=== PATIENT | female | born 1980 | race American Indian/Alaskan Native ===

== ENCOUNTER 2018-08-06 19:30 | Emergency (ER) | payer BC ==
--- NOTE | 2018-08-06 21:10 | XRay Report ---
PROCEDURE: XR ANKLE 3+V RT TECHNIQUE: 3 views of the right ankle HISTORY: fall, pain COMPARISONS: FINDINGS: No acute fracture is identified. No dislocation seen. Joint spaces are within normal limits. A planta r calcaneal enthesophyte is noted. IMPRESSION: No acute abnormality identified. Heel spur. This document is electronically signed by Berry Gallagher MD., Aug 06 2018 09:08:48 PM ET
[2018-08-06] MEDS ORDERED: PERCOCET 5/325 PO ONE (21:14)
[2018-08-06] MEDS ORDERED: ZOFRAN ODT PO ONE (21:14)
[2018-08-06] MEDS ORDERED: IBUPROFEN PO ONE (21:14)
--- NOTE | 2018-08-06 21:19 | Emergency Department Report ---
ED Fall HPI - General Chief Complaint: Extremity Injury, Lower Stated Complaint: RIGHT ANKLE PAIN Time Seen by Provider: 08/06/18 21:00 Source: patient, EMS Mode of arrival: Wheelchair - History of Present Illness Initial Comments: Patient is a 38-year-old female with no past medical history who presents to the ED via EMS complaining of acute onset persistent severe painful and swollen right ankle after she slipped, twisted her right ankle and fell down at [employer] store 2 hours ago. Patient states that she is unable to bear weight on the right ankle or foot because of severe pain. Patient denies head or neck injuries, back pain, hip pain, numbness and tingling or weakness of lower extremities bilaterally, dizziness, syncope, chest pain or shortness of breath and loss of consciousness. MD Complaint: fall -: Sudden, hour(s) (2), This evening Fall From: standing, other (Slipped and fell down on a wet floor at a Store) When Fall Occurred: 1-3 hours [employer], just prior to arrival Fall Witnessed: yes, by family, yes, by bystander Place Fall Occurred: other (Store) Loss of Consciousness: none Prolonged Down Time?: no Symptoms Prior to Fall: none Location: other (Right ankle) Location - Extremities: Right: Ankle (Swollen painful) Severity: severe Severity scale (0 -10): 8 Quality: sharp, aching Context: tripped/slipped Associated Symptoms: denies: headache, neck pain, numbness, weakness, chest paint, abdominal pain, hematuria, lightheaded, confusion - Related Data Previous Rx's Medication Instructions Recorded Last Taken Type Ibuprofen [Motrin] 800 mg PO Q8HR PRN #20 tablet 08/06/18 Unknown Rx Lisinopril/Hydrochlorothiazide 1 tab PO QDAY #30 tab 08/06/18 Unknown Rx [Zestoretic 20-12.5 mg] tiZANidine [Zanaflex] 4 mg PO Q8H PRN #21 tablet 08/06/18 Unknown Rx traMADol [Ultram] 50 mg PO Q6HR PRN 3 Days #15 tablet 08/06/18 Unknown Rx Allergies Allergy/AdvReac Type Severity Reaction Status Date / Time No Known Allergies Allergy Unverified 08/06/18 20:00 ED Review of Systems ROS: Stated complaint: RIGHT ANKLE PAIN Other details as noted in HPI Comment: All other systems reviewed and negative Constitutional: no symptoms reported, see HPI. denies: chills, malaise, weakness Eyes: as per HPI. denies: eye pain, eye discharge, vision change ENT: as per HPI. denies: ear pain, throat pain, dental pain, hearing loss Respiratory: no symptoms reported, see HPI. denies: cough, orthopnea, shortness of breath, SOB with exertion, wheezing Cardiovascular: as per HPI. denies: chest pain, palpitations, dyspnea on exertion, syncope, paroxysmal nocturnal dyspnea Endocrine: no symptoms reported, see HPI. denies: excessive sweating, increased hunger, increased urine, unexplained weight gain Gastrointestinal: as per HPI. denies: abdominal pain, nausea, vomiting, hematemesis, hematochezia Genitourinary: as per HPI. denies: urgency, dysuria, frequency, hematuria, abnormal menses, dyspareunia Musculoskeletal: as per HPI, joint swelling (right ankle), arthralgia (right ankle). denies: back pain Skin: as per HPI. denies: lesions, change in color, change in hair/nails Neurological: as per HPI. denies: headache, weakness, numbness, paresthesias, confusion, abnormal gait, vertigo Psychiatric: as per HPI Hematological/Lymphatic: as per HPI ED Past Medical Hx - Past Medical History Previous Medical History?: No - Surgical History Past Surgical History?: No - Social History Smoking Status: Never Smoker Substance Use Type: Alcohol - Medications Home Medications: Home Medications Medication Instructions Recorded Confirmed Last Taken Type Ibuprofen [Motrin] 800 mg PO Q8HR PRN #20 tablet 08/06/18 Unknown Rx Lisinopril/Hydrochlorothiazide 1 tab PO QDAY #30 tab 08/06/18 Unknown Rx [Zestoretic 20-12.5 mg] tiZANidine [Zanaflex] 4 mg PO Q8H PRN #21 tablet 08/06/18 Unknown Rx traMADol [Ultram] 50 mg PO Q6HR PRN 3 Days #15 tablet 08/06/18 Unknown Rx ED Physical Exam - General Limitations: No Limitations General appearance: alert, in no apparent distress, anxious - Head Head exam: Present: atraumatic, normocephalic, normal inspection - Eye Eye exam: Present: normal appearance, PERRL, EOMI Pupils: Present: normal accommodation - ENT ENT exam: Present: normal exam, normal orophraynx, mucous membranes moist, TM's normal bilaterally, normal external ear exam - Neck Neck exam: Present: normal inspection, full ROM. Absent: tenderness, meningismus, lymphadenopathy - Respiratory Respiratory exam: Present: normal lung sounds bilaterally. Absent: respiratory distress, wheezes, rhonchi, chest wall tenderness, accessory muscle use - Cardiovascular Cardiovascular Exam: Present: regular rate, normal rhythm, normal heart sounds - GI/Abdominal GI/Abdominal exam: Present: soft. Absent: distended, tenderness, guarding, hyperactive bowel sounds, hypoactive bowel sounds - Rectal Rectal exam: Present: deferred - Extremities Exam Extremities exam: Present: tenderness (right ankle), normal capillary refill, joint swelling (right ankle). Absent: full ROM (due to severe pain) - Expanded Lower Extremity Exam Right Hip exam: Present: normal inspection, full ROM Upper Leg exam: Present: normal inspection, full ROM Knee exam: Present: normal inspection Lower Leg exam: Present: normal inspection, full ROM Ankle exam: Present: tenderness, swelling. Absent: full ROM (limited ROM due to pain), deformity, crepidus, dislocation, anterior draw sign Foot/Toe exam: Present: normal inspection, full ROM. Absent: tenderness, swelling Neuro vascular tendon exam: Present: no vascular compromise - Back Exam Back exam: Present: normal inspection, full ROM. Absent: tenderness, CVA tenderness (R), CVA tenderness (L), muscle spasm, paraspinal tenderness, vertebral tenderness - Neurological Exam Neurological exam: Present: alert, oriented X3, CN II-XII intact, normal gait, reflexes normal - Psychiatric Psychiatric exam: Present: normal affect - Skin Skin exam: Present: warm, dry, intact, normal color ED Course Vital Signs 08/06/18 08/06/18 19:55 19:56 Temperature 98.5 F 98.5 F Pulse Rate 80 81 Respiratory 18 18 Rate Blood Pressure 182/118 182/118 O2 Sat by Pulse 99 100 Oximetry - Reevaluation(s) Reevaluation #1: 08/06/18 21:10 Patient is alert and oriented 3, appears to be in pain, hypertensive and has no past medical history of hypertension and therefore does not take any medications at home. Patient was treated for pain in the ED, and will recheck the vital signs are sudden her hypertension and treat if need be. ED Medical Decision Making - Medical Decision Making Patient is alert and oriented 3 and is not in distress but pain, however hypertensive in triage. Right ankle x-ray was performed and it shows no acute fractures or subluxations or soft tissue swelling. Patient was treated for pain in the ED and right ankle splinted with an Timmy wrap and patient given crutches to help in ambulation. On reevaluation, patient's pain is well controlled and her blood pressure still high so the patient was given a prescription for hypertension medicine and advised to follow-up with her primary care physician in 2-3 days for reevaluation. - Differential Diagnosis Right ankle fracture, severe right ankle sprain, Muscle strain Critical care attestation.: If time is entered above; I have spent that time in minutes in the direct care of this critically ill patient, excluding procedure time. ED Disposition Clinical Impression: Severe sprain of right ankle Qualifiers: Encounter type: initial encounter Qualified Code(s): S93.401A - Sprain of unspecified ligament of right ankle, initial encounter Muscle strain of right ankle Qualifiers: Encounter type: initial encounter Qualified Code(s): S96.911A - Strain of unspecified muscle and tendon at ankle and foot level, right foot, initial encounter Disposition: TO HOME OR SELFCARE Is pt being admited?: No Does the pt Need Aspirin: No Condition: Stable Instructions: Ankle Sprain (ED), Muscle Strain (ED), Hypertension (ED), Ankle Exercises (GEN) Additional Instructions: TAKE MEDICATIONS NEEDED FOR PAIN WITH FOOD, DRINK PLENTY OF FLUIDS AND FOLLOW UP WITH YOUR PRIMARY CARE PHYSICIAN ADVISED. RETURN TO THE ED IMMEDIATELY IF SYMPTOMS GET WORSE. Prescriptions: Ibuprofen [Motrin] 800 mg PO Q8HR PRN #20 tablet PRN Reason: Pain , Severe (7-10) traMADol [Ultram] 50 mg PO Q6HR PRN 3 Days #15 tablet PRN Reason: Pain tiZANidine [Zanaflex] 4 mg PO Q8H PRN #21 tablet PRN Reason: Spasms Lisinopril/Hydrochlorothiazide [Zestoretic 20-12.5 mg] 1 tab PO QDAY #30 tab Referrals: [facility] [Outside] - 3-5 Days Time of Disposition: 22:14 Print Language: THAI
[2018-08-06 22:34] VITALS: BP 171/104
== END 2018-08-06 22:49 | disposition home or self-care (01) ==
LOC: ED 19:30
DX: S93.401A Sprain of unspecified ligament of right ankle, initial encounter (principal); S96.911A Strain of unspecified muscle and tendon at ankle and foot level, right foot, initial encounter; W01.0XXA Fall on same level from slipping, tripping and stumbling without subsequent striking against object, initial encounter; Y93.89 Activity, other specified; Y92.512 Supermarket, store or market as the place of occurrence of the external cause; Y99.8 Other external cause status
CPT/HCPCS: 99284; Q0162